=== PATIENT | female | born 1960 | race Caucasian/White ===

== ENCOUNTER 2017-03-21 08:27 | Emergency (ER) | payer OTHER ==
[~2017-03-21] VITALS: Ht 167.6 cm; Wt 118.0 kg
[2017-03-21] MEDS ORDERED: LEVO75TA4 (08:36)
[2017-03-21] MEDS ORDERED: SULI150T (08:36)
[2017-03-21] MEDS ORDERED: LEVOTAB10 (08:36)
[2017-03-21 09:29] LABS: BASO % 0.6 % (0.0-1.0); EOS # 0.3 K/mm3 (0.0-0.50); EOS % 5.5 % (0.0-3.0); LARGE UNSTAINED CELL # 0.1 K/mm3 (0.0-0.4); LARGE UNSTAINED CELL % 1.1 % (0.0-4.0); LYMPH # 1.6 K/mm3 (1.5-4.5); LYMPH % 25.7 % (24.0-44.0); MEAN CORPUSCULAR HEMOGLOBIN 29.4 pg (27.0-33.0); MEAN CORPUSCULAR HGB CONC 33.1 g/dl (32.0-36.5); MEAN CORPUSCULAR VOLUME 88.7 fl (80.0-96.0); MONO # 0.3 K/mm3 (0.0-0.8); MONO % 5.4 % (0.0-5.0); NEUTROPHILS # 3.7 K/mm3 (1.8-7.7); NEUTROPHILS % 61.7 % (36.0-66.0); PLATELET COUNT, AUTOMATED 235 k/mm3 (150-450); RED CELL DISTRIBUTION WIDTH 13.6 % (11.5-14.5)
--- NOTE | 2017-03-21 09:33 | REP ---
PA and lateral chest: There are no comparisons. The lung garcia are clear. The cardiac size is normal The gricelda, mediastinum, and bony thorax are unremarkable. Impression: Negative PA and lateral chest. Signed by Wale Rider MD 03/21/2017 09:24 A
[2017-03-21 09:37] LABS: INR 0.95
[2017-03-21 09:58] LABS: ALBUMIN 3.6 GM/DL (3.2-5.2); ALBUMIN/GLOBULIN RATIO 0.97 (1.00-1.93); ALKALINE PHOSPHATASE 100 U/L (45-117); ALT/SGPT 39 U/L (12-78); ANION GAP 6 MEQ/L (8-16); AST/SGOT 18 U/L (15-37); BILIRUBIN,DIRECT 0.1 MG/DL (0.0-0.2); BILIRUBIN,TOTAL 0.7 MG/DL (0.2-1.0); BLOOD UREA NITROGEN 13 MG/DL (7-18); CALCIUM LEVEL 9.1 MG/DL (8.5-10.1); CARBON DIOXIDE LEVEL 28 MEQ/L (21-32); CHLORIDE LEVEL 107 MEQ/L (98-107); CREATININE FOR GFR 0.98 MG/DL (0.55-1.02); GLOMERULAR FILTRATION RATE > 60.0 (>51); GLUCOSE, FASTING 91 MG/DL (70-105); POTASSIUM SERUM 4.3 MEQ/L (3.5-5.1); SODIUM LEVEL 141 MEQ/L (136-145); THYROXINE (T4) 8.4 UG/DL (4.5-12.0); TOTAL PROTEIN 7.3 GM/DL (6.4-8.2)
--- NOTE | 2017-03-21 10:17 | ECGEPIP ---
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
[2017-03-21 11:00] VITALS: O2SAT 95
[2017-03-21] MEDS ORDERED: ASPI1TAB PO (11:45)
[2017-03-21 12:16] VITALS: BP 144/78
== END 2017-03-21 12:18 | disposition home or self-care (01) ==
LOC: M ED 08:27
DX: R00.2 Palpitations (principal); Z87.891 Personal history of nicotine dependence

== ENCOUNTER → 2017-03-21 | Outpatient (CLI) | payer OTHER ==
[~2017-03-21] MED LIST: ASPI1TAB PO; LEVO75TA4; LEVOTAB10; SULI150T
== END ==
LOC: M EKG 12:06
PROVIDERS: ATTEND Emergency Medicine
DX: R00.2 Palpitations (principal)

== ENCOUNTER → 2017-06-26 | Outpatient (REF) | payer OTHER | LOC: M LAB REF 09:52 | PROVIDERS: ATTEND Physician Assistant Medical | DX: J02.9 Acute pharyngitis, unspecified (principal) ==

== ENCOUNTER 2019-04-05 08:00 | Emergency (ER) | payer OTHER ==
[~2019-04-05] VITALS: Ht 167.6 cm; Wt 117.4 kg
[~2019-04-05 08:00] MED LIST changes: -ASPI1TAB PO; +ASPI81TA26 PO
[2019-04-05] MEDS ORDERED: PRAV10TA3 (08:09)
[2019-04-05] MEDS ORDERED: OXYC1TAB23 (08:09)
[2019-04-05] MEDS ORDERED: SULI150T PO (08:10)
[2019-04-05] MEDS ORDERED: diazePAM 5 MG TAB PO ONE (09:15)
[2019-04-05] MEDS ORDERED: ACETAMINOPHEN 500 MG TAB PO ONE (09:15)
[2019-04-05 09:26] LABS: HEMATOCRIT 40.5 % (36.0-47.0); HEMOGLOBIN 13.3 g/dl (12.0-15.5); MEAN CORPUSCULAR HEMOGLOBIN 29.4 pg (27.0-33.0); MEAN CORPUSCULAR HGB CONC 32.8 g/dl (32.0-36.5); MEAN CORPUSCULAR VOLUME 89.6 fl (80.0-96.0); PLATELET COUNT, AUTOMATED 263 10^3/uL (150-450); RED BLOOD COUNT 4.52 10^6/uL (4.00-5.40); WHITE BLOOD COUNT 5.9 10^3/uL (4.0-10.0)
--- NOTE | 2019-04-05 09:45 | REP ---
CT of the cervical spine without contrast Indication: Cervical tenderness, tingling left arm. Comparison: None Axial CT of the cervical spine was performed without contrast. Axial, coronal and sagittal bone reformatted images were provided. Findings: There is no acute fracture or subluxation of the cervical spine. There is congenital nonunion of the posterior arch of C1. The tubal body heights and intervertebral disc spaces are maintained. There is loss of cervical lordosis which may be related to positioning or muscle spasm. The craniocervical junction is intact. The CT appearance of the spinal canal is within normal limits. Note is made of nonenlarged bilateral cervical lymph nodes. The paraspinal soft tissues are within normal limits. There is no apical pneumothorax. Impression: No acute fracture or subluxation of the cervical spine. Electronically Signed by Lita Rolle MD 04/05/2019 09:37 A
[2019-04-05 09:57] LABS: BLOOD UREA NITROGEN 24 MG/DL (7-18); CALCIUM LEVEL 9.2 MG/DL (8.5-10.1); CARBON DIOXIDE LEVEL 29 MEQ/L (21-32); CHLORIDE LEVEL 106 MEQ/L (98-107); CPK CREATINE PHOSPHOKINASE 85 U/L (26-192); CREATININE FOR GFR 0.92 MG/DL (0.55-1.30); GLOMERULAR FILTRATION RATE > 60.0 (>51); GLUCOSE, FASTING 87 MG/DL (70-100); MAGNESIUM LEVEL 1.9 MG/DL (1.8-2.4); POTASSIUM SERUM 4.4 MEQ/L (3.5-5.1); SODIUM LEVEL 141 MEQ/L (136-145)
[2019-04-05] MEDS ORDERED: LIDOCAINE 5% (LIDODERM) PATCH TD ONE (10:30)
[2019-04-05] MEDS ORDERED: KETOROLAC 60 MG/2 ML VIAL (J1885) IM ONE (10:30)
[2019-04-05] MEDS ORDERED: CYCL10TA PO (10:56)
[2019-04-05 11:00] VITALS: BP 124/84
--- NOTE | 2019-04-05 18:49 | ECGEPIP ---
[facility] - ED Test Date: 2019-04-05 Pat Name: MARLENI FRANK Department: Room: - Gender: Female [employer]: luis a : 1960 Requested By: JAMAR Dior PA-C Order Number: [id number] Reading MD: Gilson Baires Measurements Intervals [place] Rate: 62 P: 20 OK: 183 QRS: 4 QRSD: 73 T: 47 QT: 370 QTc: 377 Interpretive Statements SINUS RHYTHM SIMILAR TO 03/21/17 Electronically Signed on 04-05-2019 18:49:43 EDT by Gilson Baires
[2019-04-05] MEDS ORDERED: **NOTE PATIENT COMMENT** MISC XX SCH (21:00)
== END 2019-04-05 11:02 | disposition home or self-care (01) ==
LOC: M ED 08:00
DX: S16.1XXA Strain of muscle, fascia and tendon at neck level, initial encounter (principal); M54.12 Radiculopathy, cervical region; X50.0XXA Overexertion from strenuous movement or load, initial encounter; Y92.89 Other specified places as the place of occurrence of the external cause; Y93.89 Activity, other specified; I48.91 Unspecified atrial fibrillation; M19.90 Unspecified osteoarthritis, unspecified site; E03.9 Hypothyroidism, unspecified; N28.1 Cyst of kidney, acquired; Z87.442 Personal history of urinary calculi; J30.9 Allergic rhinitis, unspecified; Z79.899 Other long term (current) drug therapy
CPT/HCPCS: 72125; 80048; 82550; 83735; 84443; 85027; 93005; 96372; 99284; J1885

== ENCOUNTER → 2021-12-30 | Outpatient (CLI) | payer OTHER ==
[~2021-12-30] MED LIST changes: +CYCL-707 PO; +OXYC1TAB23; +PRAV10TA3; +SULI150T PO
[2021-12-30 09:39] LABS: BASO % 0.6 % (0.0-1.0); EOS # 0.2 10^3/uL (0.0-0.5); EOS % 3.9 % (0.0-3.0); HEMATOCRIT 42.1 % (36.0-47.0); HEMOGLOBIN 13.7 g/dl (12.0-15.5); LYMPH # 1.7 10^3/uL (1.5-5.0); LYMPH % 32.2 % (24.0-44.0); MEAN CORPUSCULAR HEMOGLOBIN 29.5 pg (27.0-33.0); MEAN CORPUSCULAR HGB CONC 32.5 g/dl (32.0-36.5); MEAN CORPUSCULAR VOLUME 90.5 fl (80.0-96.0); MONO # 0.4 10^3/uL (0.0-0.8); MONO % 8.2 % (2.0-8.0); NEUTROPHILS % 54.9 % (36.0-66.0); PLATELET COUNT, AUTOMATED 210 10^3/uL (150-450); RED BLOOD COUNT 4.65 10^6/uL (4.00-5.40); WHITE BLOOD COUNT 5.4 10^3/uL (4.0-10.0)
[2021-12-30 09:41] LABS: HEMATOCRIT 42.3 % (36.0-47.0)
[2021-12-30 10:02] LABS: ALBUMIN 3.7 GM/DL (3.2-5.2); ALT/SGPT 35 U/L (12-78); BILIRUBIN,TOTAL 0.9 MG/DL (0.2-1.0); BLOOD UREA NITROGEN 16 MG/DL (7-18); CALCIUM LEVEL 9.1 MG/DL (8.8-10.2); CARBON DIOXIDE LEVEL 29 MEQ/L (21-32); CHLORIDE LEVEL 109 MEQ/L (98-107); CREATININE FOR GFR 0.84 MG/DL (0.55-1.30); FERRITIN 92 NG/ML (8-252); GLOMERULAR FILTRATION RATE > 60.0 (>45); GLUCOSE, FASTING 89 MG/DL (70-100); IRON (FE) 59 UG/DL (50-170); MAGNESIUM LEVEL 1.7 MG/DL (1.8-2.4); PERCENT SATURATION 20.7 % (13.2-45.0); PHOSPHORUS LEVEL 3.6 MG/DL (2.5-4.9); POTASSIUM SERUM 4.1 MEQ/L (3.5-5.1); SODIUM LEVEL 143 MEQ/L (136-145); TOTAL IRON BINDING CAPACITY 285 UG/DL (250-450); TOTAL PROTEIN 6.3 GM/DL (6.4-8.2)
[2021-12-30 10:31] LABS: HEMOGLOBIN A1c 5.2 %
[2021-12-30 12:27] LABS: VITAMIN B12 LEVEL 299 PG/ML (247-911)
[2021-12-30 13:11] LABS: TOTAL 25(OH) VITAMIN D 38.7 NG/ML (30.0-100.0)
== END ==
LOC: M LAB 09:01
PROVIDERS: ATTEND Physician Assistant Surgical
DX: K91.2 Postsurgical malabsorption, not elsewhere classified (principal); Z98.84 Bariatric surgery status; E55.9 Vitamin D deficiency, unspecified; Z86.39 Personal history of other endocrine, nutritional and metabolic disease

== ENCOUNTER → 2024-09-12 | Outpatient (REF) | payer OTHER ==
[2024-09-12 15:25] LABS: THYROID STIMULATING HORMONE 4.359 uIU/ML (0.55-4.78)
[2024-09-12 15:26] LABS: TOTAL 25(OH) VITAMIN D 24.4 NG/ML (20.0-100.0)
[2024-09-12 15:28] LABS: VITAMIN B12 LEVEL 259 PG/ML (211-911)
[2024-09-12 15:29] LABS: FOLATE 11.2 NG/ML (>5.4)
[2024-09-12 15:30] LABS: ALBUMIN 3.5 G/DL (3.2-5.2); ALKALINE PHOSPHATASE 118 U/L (35-104); ALT/SGPT 26 U/L (7.0-40); AST/SGOT 26 U/L (<34); BASO # 0.1 10^3/uL (0.0-0.2); BILIRUBIN,TOTAL 0.6 MG/DL (0.3-1.2); BLOOD UREA NITROGEN 16 MG/DL (9-23); CALCIUM LEVEL 9.1 MG/DL (8.3-10.6); CARBON DIOXIDE LEVEL 27 MMOL/L (20-31); CHLORIDE LEVEL 109 MMOL/L (98-107); CHOLESTEROL LEVEL 204 MG/DL (<200); CHOLESTEROL RISK RATIO 3.48 (<5); CREATININE FOR GFR 0.78 MG/DL (0.55-1.30); EOS # 0.2 10^3/uL (0.0-0.5); EOS % 4.2 % (0.0-3.0); GLOMERULAR FILTRATION RATE > 60.0 (>45); GLUCOSE, FASTING 95 MG/DL (74-106); HDL CHOLESTEROL 58.6 MG/DL (>40); HEMATOCRIT 35.3 % (36.0-47.0); HEMOGLOBIN 10.5 g/dl (12.0-15.5); IRON (FE) 32 UG/DL (50-170); LDL CHOLESTEROL 125.6 MG/DL (<100); LYMPH # 1.6 10^3/uL (1.5-5.0); LYMPH % 31.7 % (24.0-44.0); MEAN CORPUSCULAR HEMOGLOBIN 23.9 pg (27.0-33.0); MEAN CORPUSCULAR HGB CONC 29.7 g/dl (32.0-36.5); MEAN CORPUSCULAR VOLUME 80.2 fl (80.0-96.0); MONO # 0.4 10^3/uL (0.0-0.8); MONO % 7.2 % (2.0-8.0); NEUTROPHILS # 2.8 10^3/uL (1.5-8.5); NEUTROPHILS % 55.5 % (36.0-66.0); NON-HDL-C 145.4 MG/DL; PERCENT SATURATION 6.7 % (13.2-45.0); PLATELET COUNT, AUTOMATED 274 10^3/uL (150-450); POTASSIUM SERUM 4.3 MMOL/L (3.5-5.1); SODIUM LEVEL 142 MMOL/L (136-145); TOTAL IRON BINDING CAPACITY 478 UG/DL (250-425); TOTAL PROTEIN 6.5 G/DL (5.7-8.2); TRIGLYCERIDES LEVEL 99 MG/DL (<150)
[2024-09-12 15:46] LABS: HEMOGLOBIN A1c 5.4 % (4.0-6.0)
== END ==
LOC: M LAB REF 13:29
PROVIDERS: ATTEND Pediatrics
DX: K91.2 Postsurgical malabsorption, not elsewhere classified (principal); E03.9 Hypothyroidism, unspecified; E66.9 Obesity, unspecified; E78.5 Hyperlipidemia, unspecified

== ENCOUNTER → 2024-10-19 | Outpatient (CLI) | payer OTHER | LOC: M RAD 06:55 | PROVIDERS: ATTEND Pediatrics | DX: Z87.891 Personal history of nicotine dependence (principal) ==

== ENCOUNTER 2025-08-09 07:03 | Day surgery (SDC) | payer OTHER ==
[~2025-08-09] VITALS: Ht 167.6 cm; Wt 92.1 kg
[~2025-08-09 07:03] MED LIST changes: +GNPTAB36 PO; -LEVO75TA4; +LEVO75TA4 PO; -LEVOTAB10; +LEVOTAB10 PO; +MULTTAB61 PO; -PRAV10TA3; +PRAV10TA43 PO
[2025-08-09] MEDS ORDERED: LIDOCAINE 2% 100 MG/5 ML SDV (FOR ANES.) ONE (07:04)
[2025-08-09 08:15] VITALS: TEMP 97.4
[2025-08-09 08:28] VITALS: BP 132/62; O2SAT 97
== END 2025-08-09 08:41 | disposition home or self-care (01) ==
LOC: M OPP 07:03
PROVIDERS: ATTEND Surgery
DX: Z12.11 Encounter for screening for malignant neoplasm of colon (principal); K64.0 First degree hemorrhoids; Z91.048 Other nonmedicinal substance allergy status; Z79.899 Other long term (current) drug therapy; Z98.84 Bariatric surgery status